=== PATIENT | female | born 1980 | race Caucasian/White ===

== ENCOUNTER 2022-06-27 17:23 | Emergency (ER) | payer OTHER, SELFPAY ==
[2022-06-27 17:40] VITALS: BP 126/81; PULSE 80; RESP 18; TEMP 36.8; O2SAT 100
--- NOTE | 2022-06-27 17:58 | ED.URI ---
HPI - URI/Sore Throat General Chief Complaint: Upper Respiratory Infection Stated Complaint: cough,congestion,sorethroat Time Seen by Provider: 06/27/22 17:31 Source: patient Mode of arrival: ambulatory Limitations: no limitations History of Present Illness HPI Narrative: 42-year-old female presents to Express the complaints of headache, body aches, fatigue and mild congestion for the past 8 days. Patient reports that she had a sore throat but that has since resolved. Patient's and daughter recently tested positive for strep throat. Patient has been taking [id number] Tylenol, ibuprofen and Sudafed with minimal relief. Patient is a nonsmoker. Patient denies recent trauma. Patient has shortness of breath, wheezing, nausea, vomiting or Onset (ago): day(s) (8) Severity: mild Able to tolerate fluids by mouth: Yes Exacerbating factors: nothing Treatments prior to arrival: acetaminophen, ibuprofen and cold medicine Related Data Allergies Allergy/AdvReac Type Severity Reaction Status Date / Time morphine Allergy Severe VOMITING Verified 11/22/21 15:27 Bumble Bee Allergy Severe ANAPHALAXIS Uncoded 11/22/21 15:27 Review of Systems Constitutional: Constitutional: Reports chills, Denies fatigue and Denies fever(s) ENT: Denies vertigo, Denies dizziness, Denies epistaxis, Reports nasal congestion and Reports sore throat Respiratory: Respiratory: Denies cough, Denies dyspnea and Denies wheezing Gastrointestinal: Gastrointestinal: Denies diarrhea, Denies nausea and Denies vomiting Integumentary/Breasts: Skin/Breast: Denies rash Neurologic: Denies confusion, Denies vertigo, Denies dizziness, Denies syncope and Reports headache(s) [facility] Surgical History Surgical History History of appendectomy 1999 History of hysterectomy History of pancreatic surgery pancreatic spincterectomy Hx of cholecystectomy 2011 Family History Family History Father Hyperlipidemia Mother Diabetes mellitus Grandparent Acute myocardial infarction Heart disease Hyperlipidemia Hypertension Bladder cancer Social History Social History Smoking status: Former smoker Tobacco type: cigarettes Second hand tobacco smoke exposure: No Smoking end date: 09/26/00 Alcohol intake: current Drinks per week: 1 Alcohol use details: social Substance use: never Substance use type: does not use Living arrangements: with family Occupation/Education: occupation Additional occupation/education comments: RN Gender identity (if verbalized by the patient): Female Sexual Orientation (if Verbalized by the Patient): Lesbian, Canales, or Homosexual Spiritual care concerns: No Agree to blood products: Yes Comments At time of signature, I agree with nursing past medical, surgical, social and family history. There is no relevant family history pertinent to the presenting complaint. Exam Const: General: healthy appearing and no acute distress Nutritional Appearance: well nourished Orientation/consciousness: patient oriented x3 Limitations: no limitations HENMT: Head: normal to inspection Ears: external ears normal, TM's normal bilaterally and EAC's normal Face/Nose/Sinus: Normal external nose present Face and sinus: normal facial exam Mouth: Yes Normal oral and palatal mucosa present, Yes lip normal and Yes moist mucous membranes Teeth and gingiva: dentition normal Throat: uvula midline Other: Mild erythema and minimal swelling noted to bilateral tonsils. Uvula is midline and no peritonsillar abscesses noted Eyes: Conjunctivae: conjunctivae normal Chest: Chest palpation & inspection: normal inspection of the chest Resp: Effort & Inspection: normal respiratory effort and not labored Auscultation: clear to auscultation bilaterally, no crackles, no rales and n
== END 2022-06-27 18:15 | disposition home or self-care (01) ==
PROVIDERS: Emergency Provider Nurse Practitioner Family; PCP Family Medicine Adolescent Medicine
DX: J02.9 Acute pharyngitis, unspecified (principal); Z87.891 Personal history of nicotine dependence
CPT/HCPCS: 87081; 87880; 99213; G0463

== ENCOUNTER 2023-05-10 16:02 | Emergency (ER) | payer OTHER, SELFPAY ==
--- NOTE | ~2023-05-10 | XR_ITS ---
EXAMINATION: XR chest 2V DATE: 05/10/2023 16:40 INDICATION: Cough TECHNIQUE: PA and lateral views of the chest are obtained. COMPARISON: None available FINDINGS: The lungs are free of acute opacities. No pleural effusion or pneumothorax. The cardiomedia stinal silhouette is normal. The visualized bones and soft tissues are unremarkable. IMPRESSION: 1. No acute cardiopulmonary abnormality. Reviewed, dictated and finalized at location B. L [facility] [employer]NA[facility]
[2023-05-10 16:18] VITALS: BP 149/84; PULSE 84; RESP 16; TEMP 36.4; O2SAT 99
--- NOTE | 2023-05-10 16:25 | ED.GENADULT ---
HPI - General Adult General Chief complaint: Upper Respiratory Infection Stated complaint: cold symptoms Time Seen by Provider: 05/10/23 16:20 Source: patient, RN notes reviewed and old records reviewed Mode of arrival: ambulatory Limitations: no limitations History of Present Illness HPI narrative: 43-year-old female patient presents to [facility] with complaint productive cough, wheezing and difficulty breathing that started April 17, 2023. Patient states on April 25 she saw her primary care doctor and was prescribed a Z-Abelino, prednisone for 5 days, and albuterol inhaler. Patient states take all medications as directed and is still no better. patient states took several at home covid test are all negative. MD complaint: Cough/shortness of breath Onset (ago): week(s) (3) Related Data Home Medications Medication Instructions Recorded Confirmed methenam 118 mg-m.blue 10 1 tablet PO QID 04/25/23 05/10/23 mg-s.phos 40.8 mg-p.salic 36 mg-hyos capsule (Uribel) Allergies Allergy/AdvReac Type Severity Reaction Status Date / Time morphine Allergy Severe VOMITING Verified 05/10/23 16:25 Bumble Bee Allergy Severe ANAPHALAXIS Uncoded 04/25/23 12:47 Review of Systems Constitutional: Constitutional: Reports no additional constitutional complaints Eyes: Eyes: Reports no additional eye complaints ENT: Reports system reviewed and no additional complaints, except as documented Cardiovascular: Cardiovascular: Reports no additional cardiovascular complaints Respiratory: Respiratory: Reports as per HPI, Reports chest congestion, Reports cough, Reports excessive phlegm production, Reports pain with cough and Reports dyspnea Neurologic: Reports system reviewed and no additional complaints, except as documented [facility] Surgical History Surgical History History of appendectomy 1999 History of hysterectomy History of pancreatic surgery pancreatic spincterectomy Hx of cholecystectomy 2011 Family History Family History Father Hyperlipidemia Mother Diabetes mellitus Grandparent Acute myocardial infarction Heart disease Hyperlipidemia Hypertension Bladder cancer Social History Social History Smoking status: Former smoker Tobacco type: cigarettes Second hand tobacco smoke exposure: No Smoking end date: 09/26/00 Alcohol intake: current Drinks per week: 1 Alcohol use details: social Substance use: never Substance use type: does not use Living arrangements: with family Occupation/Education: occupation Additional occupation/education comments: RN Gender identity (if verbalized by the patient): Female Sexual Orientation (if Verbalized by the Patient): Lesbian, Canales, or Homosexual Spiritual care concerns: No Agree to blood products: Yes Comments At the time of my signature, I reviewed and agree with the nursing past medical, surgical, social, and family history. There is no relevant family history pertinent to the patient complaint. Exam Const: General: cooperative, no acute distress, ill appearing and well nourished Nutritional Appearance: well nourished Orientation/consciousness: patient oriented x3 Limitations: no limitations HENMT: Head: normal to inspection and normocephalic Ears: external ears normal, TM's normal bilaterally, mastoids normal and Abnormal EAC present Face/Nose/Sinus: normal facial exam Face and sinus: normal facial exam Mouth: Yes Normal oral and palatal mucosa present, Yes oropharynx normal and Yes moist mucous membranes Throat: posterior oropharynx normal, tonsils normal, uvula midline and no uvular edema Eyes: General: appearance normal, both eyes and all related structures Sclera: sclerae normal Pupils: Equal, round and reactive pupils present Resp: Effort & Inspection: no
== END 2023-05-10 17:17 | disposition home or self-care (01) ==
PROVIDERS: Emergency Provider Registered Nurse; PCP Family Medicine Adolescent Medicine
DX: J20.9 Acute bronchitis, unspecified (principal); Z87.891 Personal history of nicotine dependence
CPT/HCPCS: 71046; 99213; G0463